=== PATIENT | female | born 1995 | race Two or more races ===

== ENCOUNTER 2025-08-17 22:41 | Emergency (ER) | payer BC, SELFPAY ==
[2025-08-17 23:02] VITALS: BP 128/90; PULSE 95; RESP 16; TEMP 37; O2SAT 98
[2025-08-17 23:03] VITALS: BMI 24.5
--- NOTE | 2025-08-17 23:12 | PD.EDRME ---
Rapid Medical Screening Exam RME Arrival date/time: 08/17/25 22:41 29F with no significant PMH presents to ED with worsening pelvic pain after patient had an induced (vaginally) at about 28 weeks last week. Patient was the surrogate and the donor wanted to terminate the . Patient states bleeding is overall improving. Chief Complaint: Abdominal Pain Vital signs: Vital Signs Temperature 98.6 F 08/17/25 23:02 Pulse Rate 95 08/17/25 23:02 Respiratory Rate 16 08/17/25 23:02 Blood Pressure 128/90 H 08/17/25 23:02 Pulse Oximetry (%) 98 08/17/25 23:02 Oxygen Delivery Method Room Air 08/17/25 23:02 Exam: LLQ/pelvic tenderness Clinical Impression: RPOC vs internal hemorrhage vs PID vs ovarian cyst vs ab pain vs pelvic pain
[2025-08-17 23:37] LABS: Basophils # (Auto) 0.1 Thou/mm3 (0.0-0.2); Basophils % (Auto) 1 % (0-2.5); Eosinophils # (Auto) 0.1 Thou/mm3 (0.0-0.5); Eosinophils % (Auto) 1 % (0-10); Hematocrit 38.3 % (36.0-46.0); Hemoglobin 12.3 g/dL (12.0-16.0); Immature Granulocytes Auto 0.02 Thou/mm3 (0.00-0.00); Lymphocytes # (Auto) 2.4 Thou/mm3 (1.0-4.8); Lymphocytes % (Auto) 26 % (10-50); Mean Corpuscular HGB Conc 32.1 g/dl (31.0-37.0); Mean Corpuscular Hemoglobin 27.3 pg (25.0-35.0); Mean Corpuscular Volume 85 fL (80-100); Monocytes # (Auto) 0.6 Thou/mm3 (0.0-0.8); Monocytes % (Auto) 7 % (0-12); Neutrophils # (Auto) 6.1 Thou/mm3 (1.8-7.7); Neutrophils % (Auto) 66 % (37-80); Nucleated Red Blood Cell # 0.00 Thou/mm3 (0.00-0.00); Nucleated Red Blood Cell % 0 /100 WBC (0); Platelet Count 259 Thou/mm3 (140-440); RDW Standard Deviation 58.5 fL (36.4-46.3); Red Blood Count 4.50 Miln/mm3 (4.00-5.20); White Blood Count 9.3 Thou/mm3 (3.6-11.0)
[2025-08-18 00:19] LABS: Alanine Aminotransferase 13 U/L (10-49); Albumin, Serum 4.3 gm/dL (3.5-5.0); Albumin/Globulin Ratio 2.0 (1.2-2.2); Alkaline Phosphatase 77 U/L (46-116); Anion Gap 9 (7-16); Aspartate Amino Transferase 18 U/L (0-34); BUN/Creatinine Ratio 14 Ratio (12-20); Bilirubin,Total 0.2 mg/dL (0.3-1.2); Blood Urea Nitrogen 10 mg/dL (9-23); Calcium 9.1 mg/dL (8.3-10.6); Calcium (Corrected) 9.1 mg/dL (8.5-10.1); Carbon Dioxide 23.2 mMol/L (20.0-31.0); Chloride 109 mMol/L (98-107); Creatinine (Component) 0.7 mg/dL (0.6-1.3); Estimated Creatinine Clearance 103.3 mL/min (>60); Globulin 2.1 gm/dL (2.3-3.5); Glucose 92 mg/dL (74-106); Osmolality,Calculated 280 (275-295); Potassium 4.2 mMol/L (3.4-5.1); Sodium 141 mMol/L (136-145); Total Protein 6.4 gm/dL (5.7-8.2); eGFR > 60 See Note
[2025-08-18 00:24] LABS: Collection Type, Urine Clean Catch
[2025-08-18 00:33] LABS: Bilirubin,Urine Negative (Negative); Blood,Urine 3+ (Negative); Clarity,Urine Clear (Clear/Hazy); Color,Urine Lt-Yellow (Lt Yel-Yel); Glucose, Urine Negative (Negative); Ketones,Urine Negative (Negative); Leukocyte Esterase,Urine Positive (Negative); Nitrite,Urine Negative (Negative); PH,Urine 6.0 (5.0-7.0); Protein,Urine Negative (Neg - Trace); RBC,Urine 172 /hpf (0-3); Specific Gravity,Urine 1.023 (1.001-1.035); Squamous Epithelial Cell,Urine 4 /hpf (0-5); Urobilinogen,Urine Negative mg/dL (0.0-1.0); WBC,Urine 21 /hpf (0-5)
[2025-08-18 00:38] LABS: Culture Indicated,Urine Yes
[2025-08-18 00:41] LABS: Amphetamine/Methamp Scrn,U Negative (Negative); Barbiturate Screen,Urine Negative (Negative); Benzodiazepines Screen,Urine Negative (Negative); Benzoylecgonine Screen, Ur Negative (Negative); Fentanyl Screen,Urine Negative (Negative); Opiate Screen,Urine Negative (Negative); THC Screen,Urine Negative (Negative)
[2025-08-18 01:18] VITALS: BP 130/89; PULSE 75; RESP 18; TEMP 36.3; O2SAT 98
--- NOTE | 2025-08-18 02:06 | PD.EDABDPN ---
ED Abdominal Pain RME/HPI General Chief Complaint: Abdominal Pain Stated complaint: STOMACH AND PELVIC PAIN X2-3 DAYS, X1WK Arrival date/time: 08/17/25 22:41 RME / HPI RME / HPI narrative: 08/17/25 22:41 29F with no significant PMH presents to ED with worsening pelvic pain after patient had an induced (vaginally) at about 28 weeks last week. Patient was the surrogate and the donor wanted to terminate the . Patient states bleeding is overall improving. Dr. Willard?s Main ED Evaluation: 29yo female with no significant past medical history presents to the ED for a chief complaint of pelvic pain (L>R). Patient was 28 weeks into her surrogacy when the intended parent decided to terminate the due to the fetus having a genetic defect. Since the was terminated (delivered the fetus on 08/11/25 at 2300), patient has had pelvic pain and vaginal bleeding. Patient states her vaginal bleeding is improving, but her pelvic pain has been worsening over the last 2-3 days. Patient denies any N/V, fever, chills, or any other associated symptoms. She states this was her second surrogacy. Denies any history of similar symptoms. NKA. Related Data Previous Rx's ?Medication ?Instructions ?Recorded acetaminophen 500 mg tablet 500 mg PO TID PRN PAIN #10 tabs 04/15/15 (Tylenol Extra Strength) peg 3350-electrolytes 236 240 ml PO Q10M #4,000 mL 08/18/25 gram-22.74 gram-6.74 gram-5.86 gram solution (GaviLyte-G) Allergies Allergy/AdvReac Type Severity Reaction Status Date / Time No Known Allergies Allergy Verified 08/17/25 22:43 Review of Systems Review of Systems Systems Reviewed: All systems reviewed, normal except as documented Past Medical History Past Medical History CARDIAC: Negative Cardiac Disorders or Congestive Heart Failure RESPIRATORY: Negative Chronic Obstructive Pulmonary Disease (COPD) GENITOURINARY: Negative Renal Disease ENDOCRINE: Negative Diabetes Mellitus Type 1 or Diabetes Mellitus Type 2 Social History SMOKING STATUS: Never smoker ED Exam Narrative Physical exam: Generally patient is alert oriented x 3 in mild to moderate distress secondary to pain, heart regular rate and rhythm, lungs clear to auscultation equal bilaterally, abdomen soft bowel sounds present nondistended left upper and left lower and left adnexal tenderness to palpation without rebound. Course Quality Measures none Orders Category Date Time Status CT Screening NOW Care 08/18/25 02:18 Active Insert IV NOW Care 08/18/25 02:[address] abdomen pelvis w con Stat Exams 08/18/25 02:18 Taken US pelvic complete Stat Exams 08/18/25 23:11 Taken CBC Stat Lab 08/17/25 23:29 Completed CMP [Comprehensive Metabolic Panel] Stat Lab 08/17/25 23:29 Completed Drug Screen,Urine Stat Lab 08/17/25 23:48 Completed Urinalysis, C/S if Indicated Stat Lab 08/17/25 23:48 Completed Urine Culture Stat Lab 08/17/25 23:48 Received Morphine* Inj Med 08/18/25 02:18 Discontinued 4 mg IVP X1 ONE Vital Signs Vital signs: Vital Signs Temperature 98.6 F 08/17/25 23:02 Pulse Rate 95 08/17/25 23:02 Respiratory Rate 16 08/17/25 23:02 Blood Pressure 128/90 H 08/17/25 23:02 Pulse Oximetry (%) 98 08/17/25 23:02 Oxygen Delivery Method Room Air 08/17/25 23:02 Abdominal Pain MDM MDM Narrative MDM Narrative:: Scribe Attestation: 08/18/25 Melani Martinez am scribing for and in the presence of Dr. Willard. I interpreted all labs. Urine is not infected. Pelvic ultrasound is unremarkable. CT scan done the abdomen pelvis with IV contrast is unremarkable other than for stool throughout the colon. Patient did receive morphine 4 mg IV with benefit. At this time I do not believe anything surgical or infective is going on in this patient's pelvis or peritoneum. She will be discharged on GoLytely to be taken as prescribed. Follow-up with her doctor. Return to ER as needed or if condition worsens. Patient data External records reviewed:: [facility] previous records (Per chart review, patient has no previous ED visits or admissions to this facility.) Clinical information provided by:: patient Social determinants that could affect healthcare access:: none Patient has the following chronic illnesses:: none How is presenting disease/condition affected by chronic disease/condition?: no chronic disease Evaluation data The following diagnostics were reviewed and interpreted by me:: lab results and radiology exam(s) Lab and/or radiology exams considered but not ordered:: none Interpretation Summary: Pelvic ultrasound (transabdominal). August 18, 2025 0137 hours Clinical history: Pelvic pain Technique: Real-time, grayscale, transabdominal pelvic ultrasound was performed using Duplex scanning including arterial inflow, venous outflow, color and spectral Doppler. Comparison: None available at the time of this report. Findings: No worksheet is not available at the time of this report. The uterus is normal in size measuring 14.1 x 6.4 x 9.6 cm. The endometrium is unremarkable and measures 1.5 cm. The right ovary measures 3.1 x 1.6 x 2.2 cm and is unremarkable. The left ovary measures 3.1 x 1.8 x 2.6 cm and is unremarkable. Both ovaries demonstrate color flow and spectral waveforms on Doppler evaluation. There is no adnexal mass. There is no free fluid on the submitted images. Impression: Unremarkable pelvic sonogram. No evidence of ovarian torsion. This report has been electronically signed by: Jesus Alberto Hutton MD. Teler[employer] Preliminary Report Draft Patient: BRODY CALHOUN [facility]. Record#: [id number] Birthdate: 1995 Age/Sex: 29 / F Location: [facility] Attending Dr: Ordering Physician: Date of Service: Procedure(s): Accession Number(s): cc: ~ CT scan of the abdomen and pelvis with intravenous contrast (axial sections with sagittal and coronal reformats) August 18, 2025 0249 hours Clinical History: Abdominal pain. Comparison: None available at the time of this report. Findings: The lung bases are clear. The liver, gallbladder, pancreas, spleen, kidneys and adrenals are unremarkable. No evidence of bowel obstruction. No evidence of appendicitis. Moderate fecal loading. There is no mesenteric or retroperitoneal adenopathy. The urinary bladder is nondistended, limited evaluation. There is no free fluid or free air. The osseous structures are unremarkable. Enlarged uterus. Impression: Moderate fecal loading. Enlarged uterus. Please, correlate clinically. Consider correlation with pelvic ultrasound. Report Electronically Signed By: Jesus Alberto Hutton 08/18/2025 3:52:47 AM [EST] Medications / Prescriptions Medications or Prescriptions considered but not ordered:: none Medication administrations:: Medication Administration History Discontinued Medications Morphine Sulfate (Morphine Sulf Inj 4 Mg/Ml Vial) 4 mg IVP X1 ONE Stop: 08/18/25 02:19 Last Admin: 08/18/25 03:12 Dose: 4 mg Documented By: JIMMIE see above Consultations Consultation(s) initiated? (list below): No Diagnosis Differential diagnosis abdominal pain: other (See MDM) Most likely diagnosis given after review of the tests above:: see clinical impression below Admission Indicated Admission indicated?: not indicated Admission Request Was there a request for admission?: No Disposition Plan Disposition Plan: Discharge Discharge Attestation Discharge Attestation: The patient and all family members were given an opportunity to ask questions and understood the discharge instructions. Discharge instructions specifically effects, indications for sooner follow up or return to the emergency department, and the expected course of current diagnosis. Patient condition: Stable Discharge Plan Plan Patient Disposition: HOME (Self Care) Prescriptions/Referrals Prescriptions/Med Rec: New peg 3350-electrolytes [GaviLyte-G] 236-22.74-6.74 -5.86 gram recon soln 240 ml PO Q10M Qty: 4000 0RF Rx Instructions: until fecal effluent is clear No Action acetaminophen [Tylenol Extra Strength] 500 MG tablet 500 mg PO TID PRN (Reason: PAIN) Qty: 10 0RF Referrals: No Primary/Family,Physician [Primary Care Provider] - In 1 week Problem List Clinical Impression: Constipation, Abdominal pain, Pelvic pain Patient/Caregiver Discharge Instructions Education Materials: ED Constipation (Adult) Additional Instructions: GoLytely as prescribed. Follow-up with your doctor. Return to ER as needed or if condition worsens. Print Language: Gambian Stand Alone Forms: [facility] Award Info., Patient Portal Info Letter
--- NOTE | 2025-08-18 02:18 | XR_ITS ---
Examination: CT abdomen with intravenous contrast CT pelvis with intravenous contrast 2-D coronal reconstructions 2-D sagittal reconstructions Date and time of exam: August 18, 2025, 0249 hours INDICATIONS: Left lower abdomen and pelvic pain beginning 3 days ago, 1 week. CTDI: vol (mGy) 7.24 DLP: (mGycm) 383 Technique: Multiple axial sections of the abdomen and pelvis have been obtained. 64 slice high-resolution scanner used. 3 mm axial sections have been obtained, post intravenous injection 60 cc Isovue 370 2-D sagittal, coronal reconstructions obtained. Low dose protocols were performed. One or more of the following dose reduction techniques were used; automated exposure control, adjustment of the mA and/or KV according to patient size, use of iterative reconstruction technique. Findings: No focal liver or splenic lesion No gallstones No pancreatic or adrenal mass No hydronephrosis renal or ureteral calculi Aorta normal size Moderate stool in the colon No pericecal inflammatory change enlarged uterus with thickened endometrial stripe No uterine mass No pelvic hematoma, no pelvic abscess Urinary bladder intact Osseous structures intact IMPRESSION: Enlarged uterus with thickened endometrial stripe, please see the pelvic sonogram report this morning No pelvic hematoma, no pelvic abscess
[2025-08-18] MEDS: MORPHINE SULF INJ 4 MG/ML VIAL IVP (03:12)
--- NOTE | 2025-08-18 03:49 | PRELIM_ITS ---
Pelvic ultrasound (transabdominal). August 18, 2025 0137 hours Clinical history: Pelvic pain Technique: Real-time, grayscale, transabdominal pelvic ultrasound was performed using Duplex scanning including arterial inflow, venous outflow, color and spectral Doppler. Comparison: None available at the time of this report. Findings: No worksheet is not available at the time of this report. The uterus is normal in size measuring 14.1 x 6.4 x 9.6 cm. The endometrium is unremarkable and measures 1.5 cm. The right ovary measures 3.1 x 1.6 x 2.2 cm and is unremarkable. The left ovary measures 3.1 x 1.8 x 2.6 cm and is unremarkable. Both ovaries demonstrate color flow and spectral waveforms on Doppler evaluation. There is no adnexal mass. There is no free fluid on the submitted images. Impression: Unremarkable pelvic sonogram. No evidence of ovarian torsion. Report Electronically Signed By: Jesus Alberto Hutton 08/18/2025 3:48:22 AM [EST]
--- NOTE | 2025-08-18 03:53 | PRELIM_ITS ---
CT scan of the abdomen and pelvis with intravenous contrast (axial sections with sagittal and coronal reformats) August 18, 2025 0249 hours Clinical History: Abdominal pain. Comparison: None available at the time of this report. Findings: The lung bases are clear. The liver, gallbladder, pancreas, spleen, kidneys and adrenals are unremarkable. No evidence of bowel obstruction. No evidence of appendicitis. Moderate fecal loading. There is no mesenteric or retroperitoneal adenopathy. The urinary bladder is nondistended, limited evaluation. There is no free fluid or free air. The osseous structures are unremarkable. Enlarged uterus. Impression: Moderate fecal loading. Enlarged uterus. Please, correlate clinically. Consider correlation with pelvic ultrasound. Report Electronically Signed By: Jesus Alberto Hutton 08/18/2025 3:52:47 AM [EST]
[2025-08-18 04:18] VITALS: BP 106/77; PULSE 64; RESP 18; O2SAT 100
--- NOTE | 2025-08-18 23:11 | XR_ITS ---
Examination: Pelvic ultrasound, transabdominal, complete Technique: Transabdominal ultrasound of the pelvis performed using grayscale imaging Date and time of exam: August 18, 2025, 0137 hours INDICATIONS: Pelvic pain with vaginal bleeding, on antibiotic therapy 1 week FINDINGS: Uterus 14.1 cm no discrete uterine mass Endometrial stripe 15 mm Right ovary 3.1 cm arterial flow Left ovary 3.1 cm arterial flow IMPRESSION: No discrete uterine mass, no intrauterine gestation No adnexal mass
== END 2025-08-18 04:19 | disposition home or self-care (01) ==
PROVIDERS: Physician Assistant; Emergency Provider Emergency Medicine
DX: N85.2 Hypertrophy of uterus (principal)
CPT/HCPCS: 36415; 74177; 76856; 80053; 80307; 81001; 85025; 87086; 96374; 99284; A4649; J2270; Q9967